=== PATIENT | female | born 1945 | race Two or more races ===

== ENCOUNTER 2024-05-13 20:30 | Emergency (ER) | payer OTHER ==
[~2024-05-13] VITALS: Ht 154.9 cm; Wt 77.1 kg
[2024-05-13] MEDS ORDERED: NORVASC5 MG PO (20:43)
[2024-05-13] MEDS ORDERED: BUTALB/ACETAMINOPHEN/CAFFEINE 1 TAB TABLET PO ONE (21:30)
[2024-05-13] MEDS ORDERED: ONDANSETRON HCL 2 MG/ML VIAL IV ONE (21:30)
[2024-05-13] MEDS ORDERED: FAMOtidine 10 MG/ML (4ML VIAL) IV ONE (21:30)
[2024-05-13 23:15] LABS: HEMATOCRIT 45.1 % (36.0-45.00); HEMOGLOBIN 15.6 g/dL (12.0-15.00); MEAN CELL VOLUME 88.4 fL (80.00-100.00); MEAN CORPUSCULAR HEMOGLOBIN 30.5 pg (27.00-32.0); MEAN CORPUSCULAR HGB CONC 34.5 g/dl (32.0-36.0); PLATELET COUNT 261 K/uL (150-450); RED CELL DISTRIBUTION WIDTH 13.5 % (11.5-14.5)
[2024-05-13] MEDS ORDERED: BUTALB-ACETAMI1 EACH PO (23:50)
[2024-05-13] MEDS ORDERED: PEPCID AC20 MG PO (23:50)
[2024-05-13] MEDS ORDERED: ZOFRAN8 MG PO (23:50)
== END 2024-05-14 | disposition home or self-care (01) ==
LOC: ER 20:32
PROVIDERS: General Practice
DX: R11.10 Vomiting, unspecified (principal); R51.9 Headache, unspecified; Z88.8 Allergy status to other drugs, medicaments and biological substances; I10 Essential (primary) hypertension; K57.30 Diverticulosis of large intestine without perforation or abscess without bleeding; Z20.822 Contact with and (suspected) exposure to COVID-19
CPT/HCPCS: 36415; 70450; 93005; 96365; 99284; J2405; J3490